=== PATIENT | male | born 1960 | race Caucasian/White ===

== ENCOUNTER 2017-01-24 14:30 | Outpatient (CLI) | payer BC ==
[2017-01-24 15:14] LABS: ALT (SGPT) 35 U/L (8-55); AST (SGOT) 26 U/L (5-34); Alkaline Phosphatase 84 U/L (40-150); Anion Gap 14 mmol/L (10-20); BUN (Urea Nitrogen) 22 mg/dL (8.4-25.7); Bilirubin, Total 0.5 mg/dL (0.2-1.2); Calc. Creatinine Clearance 0 mL/min (70-130); Calcium 9.8 mg/dL (7.8-10.44); Carbon Dioxide 24 mmol/L (22-29); Cardiac Risk 6.2 (Less than 4.5); Chloride 109 mmol/L (98-107); Cholesterol 187 mg/dl (< 200 Desired); Estimated GFR-MDRD 58; Globulin 3.7 g/dL (2.4-3.5); Glucose 121 mg/dL (70-105); HDL Cholesterol 30 mg/dL (>60 Neg Risk); Protein, Total 7.7 g/dL (6.0-8.3); Sodium 143 mmol/L (136-145); Triglycerides 569 mg/dL (Less than 150)
[2017-01-24 16:54] LABS: Eosinophils 6 % (0-10); Hemoglobin 16.2 g/dL (14.0-18.0); Lymphocytes 41 % (21-51); MDiff Complete? YES; Mean Corpuscular HGB CONC 34.1 g/dL (32.0-36.0); Mean Corpuscular Hemoglobin 32.9 pg (27.0-31.0); Mean Corpuscular Volume 96.6 fl (80.0-94.0); Mean Platelet Volume 9.7 fL (7.4-10.4); Monocytes 14 % (0-10); Neutrophil 39 % (42-75); PLT Morphology Comment Appears Adequate; Platelet Count 286 thou/uL (130-400); RBC Distribution Width 12.6 % (11.5-14.5); Red Blood Cell (RBC) Count 4.92 mill/uL (4.70-6.10); White Blood Cell (WBC) Count 9.3 thou/uL (4.8-10.8)
== END 2017-01-24 14:31 | disposition home or self-care (01) ==
LOC: MADLABBHPM 14:30
PROVIDERS: ATTEND Family Medicine
DX: I10 Essential (primary) hypertension (principal)
CPT/HCPCS: 36415; 80053; 80061; 85025

== ENCOUNTER 2017-03-31 09:43 | Outpatient (CLI) | payer BC ==
[2017-03-31 10:55] LABS: Hemoglobin A1c 5.9 % (4.0-6.0)
== END 2017-03-31 09:44 | disposition home or self-care (01) ==
LOC: MADLABBHPM 09:43
PROVIDERS: ATTEND Family Medicine
DX: R73.02 Impaired glucose tolerance (oral) (principal)
CPT/HCPCS: 36415; 83036

== ENCOUNTER 2017-10-10 10:06 | Outpatient (CLI) | payer BC, OTHER ==
[2017-10-10 11:11] LABS: Anion Gap 14 mmol/L (10-20); BUN (Urea Nitrogen) 21 mg/dL (8.4-25.7); Calc. Creatinine Clearance 0 mL/min (70-130); Calcium 9.9 mg/dL (7.8-10.44); Carbon Dioxide 24 mmol/L (22-29); Cardiac Risk 6.4 (Less than 4.5); Cholesterol 187 mg/dl (< 200 Desired); Estimated GFR-MDRD 79; Glucose 97 mg/dL (70-105); HDL Cholesterol 29 mg/dL (>60 Neg Risk); Potassium 4.1 mmol/L (3.5-5.1); Sodium 141 mmol/L (136-145); Triglycerides 449 mg/dL (Less than 150)
[2017-10-10 11:15] LABS: Chloride 107 mmol/L (98-107)
--- NOTE | 2017-10-10 12:17 | RAD ---
2 VIEWS RIGHT HIP: Date: 10/10/17 HISTORY: Pain. COMPARISON: None. FINDINGS: Contour of the femoral head is maintained. The joint space is preserved. No fracture. IMPRESSION: Unremarkable right hip 2 views. POS: [facility]
--- NOTE | 2017-10-10 12:19 | RAD ---
LEFT HIP 2 VIEWS: Date: 10/10/17 INDICATION: Chronic left hip pain. COMPARISON: None. FINDINGS: There is mild degenerative arthrosis of the left hip. No acute fracture or subluxation is evident. Sm all phleboliths are seen within the lower pelvis. Mild degenerative changes involve the left SI joint . IMPRESSION: Mild degenerative changes of the left hip and left SI joint. POS: [facility]
[2017-10-10 13:02] LABS: Eosinophils 1 % (0-10); Hemoglobin 16.6 g/dL (14.0-18.0); Lymphocytes 50 % (21-51); MDiff Complete? YES; Mean Corpuscular HGB CONC 34.9 g/dL (32.0-36.0); Mean Corpuscular Hemoglobin 33.1 pg (27.0-31.0); Mean Corpuscular Volume 94.7 fl (80.0-94.0); Mean Platelet Volume 7.6 fL (7.4-10.4); Monocytes 10 % (0-10); Neutrophil 39 % (42-75); PLT Morphology Comment Appears Adequate; Platelet Count 292 thou/uL (130-400); RBC Distribution Width 12.7 % (11.5-14.5); Red Blood Cell (RBC) Count 5.02 mill/uL (4.70-6.10); White Blood Cell (WBC) Count 8.4 thou/uL (4.8-10.8)
== END 2017-10-10 10:07 | disposition home or self-care (01) ==
LOC: MADLABBHPM 10:06
PROVIDERS: ATTEND Family Medicine
DX: Z12.5 Encounter for screening for malignant neoplasm of prostate (principal); M25.552 Pain in left hip; M47.898 Other spondylosis, sacral and sacrococcygeal region; M16.12 Unilateral primary osteoarthritis, left hip; I10 Essential (primary) hypertension; R73.02 Impaired glucose tolerance (oral)
CPT/HCPCS: 36415; 80048; 80061; 83036; 85025; G0103